=== PATIENT | female | born 1980 | race African-American/Black ===

== ENCOUNTER 2019-02-09 08:12 | Emergency (ER) | payer MEDICAID ==
[~2019-02-09] VITALS: Ht 160 cm; Wt 90.7 kg
[2019-02-09 08:13] VITALS: BP 120/72
--- NOTE | 2019-02-09 08:25 | NUR ---
PT IN WHEELCHAIR TO ER BED 04
--- NOTE | 2019-02-09 08:28 | NUR ---
DR KAPOOR AT BEDSIDE FOR PT EVALUATION
--- NOTE | 2019-02-09 08:29 | NUR ---
PT STATED SHE INJURED LEFT ANKLE LAST NIGHT WHILE AMBULATING--- +2 PEDAL PULSE; MILD SWELLING AND DISCOLORATION INCREASED PT UPON WEIGHT BEARING
[2019-02-09] MEDS ORDERED: ACETAMINOPHEN 325 MG TAB PO ONE (08:30)
--- NOTE | 2019-02-09 08:31 | NUR ---
X-RAY AT BEDSIDE
[2019-02-09 09:42] VITALS: BP 130/70
--- NOTE | 2019-02-09 09:42 | NUR ---
Patient discharged with v/s stable. Written and verbal after care instructions given and explained. Patient verbalized understanding. Ambulatory with the use of crutches (from home), steady gait. All questions addressed prior to discharge. Advised to follow up with PMD.
== END 2019-02-09 09:42 | disposition home or self-care (01) ==
LOC: MED 08:12
DX: S93.402A Sprain of unspecified ligament of left ankle, initial encounter (principal); W22.8XXA Striking against or struck by other objects, initial encounter; Y93.01 Activity, walking, marching and hiking; Y92.89 Other specified places as the place of occurrence of the external cause; Y99.8 Other external cause status
CPT/HCPCS: 29515; 73610; 99283; Q0092

== ENCOUNTER 2021-09-02 16:49 | Emergency (ER) | payer MEDICAID ==
[~2021-09-02] VITALS: Ht 160 cm; Wt 108.4 kg
[2021-09-02 17:01] VITALS: BP 138/76
--- NOTE | 2021-09-02 17:03 | NUR ---
LOBBY Addendum: 09/02/21 at 1704 by [email or web address] HANDED ON URINE CUP.
[2021-09-02 18:48] LABS: BASOPHILS # (AUTO) 0.1 K/uL (0.00-0.22); BASOPHILS % (AUTO) 0.6 % (0.0-2.0); EOSINOPHILS # (AUTO) 0.2 K/uL (0-0.4); HEMATOCRIT 33.6 % (36-48); HEMOGLOBIN 10.9 g/dL (12.0-16.0); LYMPHOCYTES # (AUTO) 3.1 K/uL (2.5-16.5); LYMPHOCYTES % (AUTO) 34.2 % (20.5-51.1); MEAN CORPUSCULAR HEMOGLOBIN 24 pg (27-31); MEAN CORPUSCULAR HGB CONC 32 g/dL (33-37); MONOCYTES # (AUTO) 0.7 K/uL (0.8-1.0); MONOCYTES % (AUTO) 7.7 % (1.7-9.3); NEUTROPHILS % (AUTO) 55.5 % (42.2-75.2); PLATELET COUNT (AUTO) 357 K/uL (140-450); RED BLOOD CELL COUNT(AUTO) 4.47 MIL/uL (4.20-5.40); WHITE BLOOD COUNT (AUTO) 8.9 K/uL (4.8-10.8)
[2021-09-02] MEDS ORDERED: IBUP-2213 PO (19:46)
[2021-09-02] MEDS ORDERED: FERR325E14 PO (19:47)
--- NOTE | 2021-09-02 20:01 | NUR ---
NO NURSING INTERVENTIONS DONE, NO COMPLETE ASSESSMENTS NECESSARY.
[2021-09-02 20:07] VITALS: BP 142/77
--- NOTE | 2021-09-02 20:07 | NUR ---
Patient discharged with v/s stable. Written and verbal after care instructions given MENORRHAGIA and explained. Patient alert, oriented and verbalized understanding of instructions. Ambulatory with steady gait. All questions addressed prior to discharge. ID band removed. Patient advised to follow up with PMD. Rx of FERROUS SULFATE AND IBUPROFEN given. Patient educated on indication of medication including possible reaction and side effects. Opportunity to ask questions provided and answered.
== END 2021-09-02 20:07 | disposition home or self-care (01) ==
LOC: MED 16:49
DX: N92.0 Excessive and frequent menstruation with regular cycle (principal); N83.201 Unspecified ovarian cyst, right side; D50.9 Iron deficiency anemia, unspecified
CPT/HCPCS: 36415; 76830; 84703; 85025; 99284; Q0092